=== PATIENT | male | born 1965 | race Caucasian/White ===

== ENCOUNTER 2020-08-31 07:02 | Day surgery (SDC) | payer OTHER ==
[2020-08-29 18:21] VITALS: BMI 36.8
[2020-08-31 07:42] VITALS: TEMP 98.4
[2020-08-31] MEDS ORDERED: MIDAZOLAM HCL 2 MG/2 ML SINGLE DOSE VIAL ONE (08:33)
[2020-08-31] MEDS ORDERED: PROPOFOL 20 ML ONE (08:33)
[2020-08-31] MEDS ORDERED: ONDANSETRON 4 MG/2 ML VIAL IVPUSH PRN (10:10)
[2020-08-31] MEDS ORDERED: PROMETHAZINE HCL 25 MG/1 ML VIAL IVPUSH PRN (10:10)
[2020-08-31 10:11] VITALS: BP 112/70; PULSE 77
[2020-08-31] MEDS ORDERED: LACTATED RINGERS SOLUTION 1,000 ML IV SCH (10:15)
== END 2020-08-31 10:10 | disposition home or self-care (01) ==
LOC: FASU 07:02
PROVIDERS: ATTEND Orthopaedic Surgery Hand Surgery
PROC: 01N50ZZ Release Median Nerve, Open Approach (ICD-10-PCS; principal; 2020-08-31 09:06)
DX: G56.02 Carpal tunnel syndrome, left upper limb (principal)
CPT/HCPCS: 82962